=== PATIENT | male | born 1990 | race Two or more races ===

== ENCOUNTER 2019-11-14 11:58 | Emergency (ER) | payer OTHER ==
[~2019-11-14] VITALS: Ht 188 cm; Wt 78.9 kg
--- NOTE | 2019-11-14 12:07 | NUR ---
[id number] and [employer], in custody, vandalizing cars, etoh, PT TO BED 13, -SOB, PT ON MONITOR, VSS, NAD NOTED,PENDING MD RAMOS
[2019-11-14] MEDS ORDERED: LORAZEPAM INJ 2 MG/ML VIAL ONE ×4 (12:17→19:47)
[2019-11-14] MEDS ORDERED: OLANZAPINE 10 MG VIAL IM ONE ×4 (12:17→13:14)
[2019-11-14] MEDS ORDERED: LORAZEPAM INJ 2 MG/ML VIAL IM ONE ×4 (12:30→20:00)
[2019-11-14 12:35] LABS: BASOPHILS # (AUTO) 0.2 /CMM (0.0-0.2); BASOPHILS % (AUTO) 1.4 % (0.0-2.0); EOSINOPHILS % (AUTO) 0.2 % (0.0-6.0); HEMATOCRIT 45 % (39-51); HEMOGLOBIN 15.4 g/dL (13.5-17.5); LYMPHOCYTES # (AUTO) 1.1 /CMM (0.8-4.8); MEAN CORPUSCULAR HGB CONC 34 g/dl (31.0-36.0); MEAN CORPUSCULAR VOLUME 87 fL (80-96); MONOCYTES # (AUTO) 0.6 /CMM (0.1-1.30); MONOCYTES % (AUTO) 4.9 % (2.0-12.0); NEUTROPHILS # (AUTO) 10.1 /CMM (1.8-8.9); NEUTROPHILS % (AUTO) 84.5 % (43.0-81.0); PLATELET COUNT (AUTO) 373 /CMM (150-450); RED BLOOD CELL COUNT(AUTO) 5.17 MIL/uL (4.5-6.0)
[2019-11-14 12:51] LABS: CALCIUM, SERUM 9.4 mg/dL (8.5-10.1); CREATININE 1.2 mg/dL (0.6-1.3); POTASSIUM 3.8 mmol/L (3.5-5.1)
[2019-11-14 12:57] LABS: ALBUMIN 4.2 g/dL (3.4-5.0); BILIRUBIN,DIRECT 0.1 mg/dL (0.0-0.2); BILIRUBIN,TOTAL 0.4 mg/dL (0.2-1.0); TOTAL PROTEIN, SERUM 7.9 g/dL (6.4-8.2)
[2019-11-14 12:58] LABS: SALICYLATE 2.1 mg/dL (2.8-20.0)
[2019-11-14] MEDS ORDERED: SILVER SULFADIAZINE CREAM 25 GM TUBE ONE (15:17)
[2019-11-14] MEDS ORDERED: diphenhydrAMINE HCL 50 MG/ML VIAL ONE (15:29)
[2019-11-14] MEDS ORDERED: diphenhydrAMINE HCL 50 MG/ML VIAL IM ONE (15:30)
[2019-11-14] MEDS ORDERED: SILVER SULFADIAZINE CREAM 25 GM TUBE TP ONE (15:30)
--- NOTE | 2019-11-14 18:00 | NUR ---
PT TO BATHROOM, GIVEN URINE CUP FOR SPECIMEN
--- NOTE | 2019-11-14 18:30 | NUR ---
UNABLE TO PROVIDE SAMPLE
--- NOTE | 2019-11-14 18:57 | NUR ---
PT UNABLE TO PROVIDE URINE SPECIMEN AT THIS TIME, TRIED X3; [employer]IST AWARE, PER MARCELINO, NO NEED TO STRAIGHT CATH AT THIS TIME
[2019-11-14] MEDS ORDERED: TDAP [DIPH/PERTUSSIS/TET] 0.5 ML VIAL IM ONE ×2 (21:30→21:46)
--- NOTE | 2019-11-14 21:32 | NUR ---
pt return from ct
--- NOTE | 2019-11-14 22:34 | NUR ---
Patient discharged to home in stable condition. Written and verbal after care instructions given. Patient verbalizes understanding of instruction. Pt ambulatory with a steady gait
--- NOTE | 2019-11-14 22:34 | NUR ---
PT AMBULATED WELL WITHOUT ASSIST ON STEADY GAIT
[2019-11-14 22:35] VITALS: BP 134/88
== END 2019-11-14 22:45 | disposition home or self-care (01) ==
LOC: ER 11:59
DX: F15.10 Other stimulant abuse, uncomplicated (principal); T25.222A Burn of second degree of left foot, initial encounter; T25.221A Burn of second degree of right foot, initial encounter; R51 Headache; X08.8XXA Exposure to other specified smoke, fire and flames, initial encounter; Y93.89 Activity, other specified; Y92.89 Other specified places as the place of occurrence of the external cause; Y99.8 Other external cause status; Z59.0 Homelessness
CPT/HCPCS: 16020; 36415; 70450; 80048; 80076; 80307; 80329; 85025; 90471; 90715; 96372 ×2; 99284; G0480; J1200; J2060 ×4; J3490 ×2